=== PATIENT | male | born 1955 | race Caucasian/White ===

== ENCOUNTER 2023-05-19 10:28 | Outpatient (AMB) | payer MEDICARE, MEDICAID, SELFPAY ==
--- NOTE | 2023-05-19 10:41 | A.OFFVIS_ITS ---
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 Accompanied by: Self / Same As Patient Allergies No Known Allergies Allergy (Verified 05/19/23 10:44) Medication List - Last Reconciled 05/19/23 by Mumtaz Sawyer MD albuterol sulfate 2.5 mg inhalation Q4-6H PRN albuterol sulfate 90 mcg/actuation (ProAir HFA) 1 inh inhalation QID amlodipine 10 mg PO DAILY aspirin (Adult Low Dose Aspirin) 81 mg PO DAILY budesonide 0.25 mg inhalation BID donepezil 10 mg PO BEDTIME losartan-hydrochlorothiazide 100-25 mg 1 tab PO DAILY metoprolol tartrate 100 mg PO DAILY montelukast (Singulair) 10 mg PO BEDTIME oxycodone 15 mg PO TID PRN terazosin 1 mg PO BEDTIME HPI HPI Comments History of Present Illness Details Edison is here for consultation regarding chest pains. No known coronary disease but he does have risk factors including obesity and hypertension. He has history of COPD but he states he has never smoked in the past. Over the last year or so due to difficulty in mobility, has gained almost 100 lb. He has been getting some chest pains off and on. Across the front of the chest and sometimes he also gets discomfort in both his arms. Not clear if it is musculoskeletal or something cardiac. Can happen any time. He seems to walk with a cane. [facility] Medical History (Updated 05/19/23 @ 11:18 by Mumtaz Sawyer MD) COPD (chronic obstructive pulmonary disease) Essential hypertension Morbid obesity Surgical History (Updated 05/19/23 @ 10:56 by Alise Solares) H/O hand surgery H/O knee surgery H/O shoulder surgery Family History (Updated 05/19/23 @ 10:57 by Alise Solares) Father CAD (coronary artery disease) Social History (Updated 05/19/23 @ 10:58 by Alise Solares) Alcohol intake: former Year quit: 1985 Patient Tobacco Use Status: Never used Tobacco Review of Systems Const Denies chills, Denies daytime sleepiness, Denies fatigue, Denies fever(s), Denies frequent falls, Denies night sweats, Denies snoring, Denies weakness, Denies weight gain and Denies weight loss Eyes Denies loss of vision ENT Denies dizziness and Denies hearing loss Card Denies chest pain, Denies chest pain with activity, Denies syncope, Denies rapid heart rate, Denies edema, Denies claudication, Denies leg edema, Denies lightheadedness, Denies palpitations, Denies dyspnea, Denies dyspnea on exertion and Denies orthopnea Resp Denies cough, Denies excessive phlegm production, Denies dyspnea, Denies dyspnea on exertion, Denies snoring and Denies wheezing GI Denies abdominal pain, Denies hematochezia, Denies change in bowel habits, Denies change in stool character, Denies heartburn, Denies nausea and Denies vomiting Denies hematuria, Denies dysuria and Denies urinary frequency Musc Denies arthralgias, Denies muscle weakness, Denies numbness and Denies tingling Skin/Breast Denies nail changes and Denies rash Neuro Denies Abnormal speech present, Denies dizziness, Denies syncope, Denies f requent falls, Denies loss of vision, Denies memory loss, Denies numbness, Denies tingling and Denies weakness Psych Denies depression and Denies memory loss Endo Denies fatigue and Denies palpitations Aller/Immun Denies wheezing Physical Exam Vital Signs: Last Vital Signs Pulse 57 05/19/23 10:43 BP 96/68 05/19/23 10:43 BMI result Body Mass Index 46.2 Const General: comfortable and no acute distress Orientation/consciousness: patient oriented x3 HEENT Other: Unremarkable Head: Yes normal to inspection Neck Neck: Yes normal visual inspection Chest Chest palpation & inspection: normal inspection of the chest Resp Auscultation: clear to auscultation bilaterally Cardio Palpation: normal PMI Heart sounds: S1 normal heart sound present, S2 normal heart sound present, no gallops, no murmurs and no rubs GI Palpation (GI): Soft to palpation Back/Spine/Pelvis Other: unremarkable Skin General skin exam: no rashes or lesions noted Neuro General: patient oriented x3 Speech: No Abnormal speech present Extrem General: Yes normal to inspection Psych Mental Status: mental status grossly normal Office Procedures EKG Details: EKG with sinus bradycardia at 57/Min; no significant ST-T changes and otherwise [place]remark[place] [id number], Complete Assessment & Plan Assessment & Plan (1) Precordial chest pain: Code(s): R07.2 - Precordial pain (2) Morbid obesity: Code(s): E66.01 - Morbid (severe) obesity due to excess calories (3) COPD (chronic obstructive pulmonary disease): Code(s): J44.9 - Chronic obstructive pulmonary disease, unspecified (4) Essential hypertension: Code(s): I10 - Essential (primary) hypertension Plan Multiple risk factors, extensive weight gain recently, nonexertional chest pains, normal baseline EKG, inability to exercise as walking with a cane. Will get an echocardiogram and pharmacological stress test. If tests are inconclusive due to body habitus, then may need cardiac catheterization. We discussed about these today and patient is in agreement. To be followed once testing is completed. Orders: Orders CA lexiscan stress w tiffanie Today R07.2 - Precordial pain CA echo transthoracic complete Today R07.2 - Precordial pain NM cardiolite stress test Today R07.2 - Precordial pain Coding Level of Care Code New Pt Level 4 (55404) Diagnoses Precordial chest pain R07.2 Morbid obesity E66.01 COPD (chronic obstructive pulmonary disease) J44.9 Essential hypertension I10 CPT Codes EKG - CPT: [id number], Complete ([id number])
[2023-05-19 10:43] VITALS: BP 96/68; PULSE 57; BMI 46.2
== END 2023-05-19 11:24 | disposition home or self-care (01) ==
PROVIDERS: Visit Provider Internal Medicine
DX: R07.2 Precordial pain (principal); E66.01 Morbid (severe) obesity due to excess calories; J44.9 Chronic obstructive pulmonary disease, unspecified; I10 Essential (primary) hypertension
CPT/HCPCS: 93010; 99204

== ENCOUNTER → 2023-05-19 10:28 | Outpatient (BNVA) | payer MEDICARE, MEDICAID, SELFPAY | PROVIDERS: Visit Provider Internal Medicine | DX: R07.2 Precordial pain (principal); I10 Essential (primary) hypertension; E66.01 Morbid (severe) obesity due to excess calories; J44.9 Chronic obstructive pulmonary disease, unspecified; Z68.42 Body mass index [BMI] 45.0-49.9, adult | CPT/HCPCS: 93005; 99202 ==

== ENCOUNTER → 2023-07-09 08:05 | Outpatient (REF) | payer MEDICARE, OTHER, SELFPAY ==
--- NOTE | ~2023-07-09 | NM_ITS ---
Myocardial perfusion study Indication: Chest pain to evaluate for myocardial ischemia Technique: The patient was brought in for a Lexiscan perfusion study on 07/09/2023. Patient performed low-level exercise and was injected 0.4 mg of Lexiscan intravenously. Within a minute of injection, 45 mCi of sestamibi was given intravenously. Images were obtained using the SPECT gamma camera interlaced with the gating device. Images were obtained in supine position. Resting perfusion study was performed on 07/12/2023. Patient was administered 45 mCi of sestamibi intravenously at rest. Images were then obtained in supine position. Images obtained with and without CT attenuation. Total DLP 199 mGy-cm. Images were processed with the software and compared side to side in short axis, horizontal long axis and vertical long axis views. Findings: The stress perfusion study showed non attenuated images show mildly reduced uptake in the anterior wall with severely reduced uptake in the apex and absent uptake in the inferoapical wall as well as mildly reduced uptake in the inferior and inferoseptal wall of the LV myocardium. The attenuation corrected images show mildly to moderately reduced uptake in the anterior wall, moderately reduced uptake in the apex and mildly reduced uptake in the inferoapical wall of the LV myocardium. Remainder of the LV myocardium is normally perfused.. The gated study shows normal LV systolic function with calculated LVEF of 59%. LV cavity is mildly dilated size. The gated study shows normal systolic wall thickening and contraction of segments. Resting study shows both attenuated as well as non attenuated corrected images show improved uptake in the anterior, apex and inferoapical wall of the LV myocardium suggestive of a reversible defect.. Gating at rest reveals normal systolic wall motion with ejection fraction at 51%. The findings are consistent with mild to moderate intensity anterior as well as apical and inferoapical wall reversible defect suggestive of ischemia in LAD territory.. NM/NM cardiolite stress test Impression: 1. Myocardial perfusion imaging study shows mild to moderate intensity LAD territory ischemia 2. Gated LVEF is 59% 3. Transient ischemic dilatation present EKG is nondiagnostic for ischemia
--- NOTE | 2023-07-09 08:09 | CA_ITS ---
Acquisition Time: 2023-07-09 09:48:03 Total Exercise Time: 00:02:00 Test Indications: CP Medications: SEE H Protocol: LEXISCAN Max HR: 080 BPM 51% of Pred: 155 BPM Max BP: 118/064 mmHG Max Work Load: 1.0 METS Pharmacological stress test with Lexiscan injection while sitting and marching in place, without anginal symptoms, without arrhythmias, with normotensive response to injection, with nondiagnositic EKGs. Nuclear images pending. Test reviewed with Dr. Hernandez. Referred By: Jin Shepherd Overread By: JIN SHEPHERD
--- NOTE | 2023-07-09 08:09 | CA_ITS ---
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 Moderately dilated ascending aorta 4.5 cm 2. Normal LV ejection fraction at 60-65% with grade 1 diastolic dysfunction 3. Normal cardiac valvular Doppler 4. Normal RV systolic pressure 5. No gross pericardial effusion Findings Left Ventricle Normal left ventricular size, thickness, and systolic function. The visually estimated ejection fraction is between 60-65%. Spectral Doppler is indicative of an impaired relaxation filling pattern. E/E prime ratio is <8, consistent with normal filling pressures. Evidence suggests grade I (mild) diastolic dysfunction. Right Ventricle Normal right ventricular cavity size and systolic function. Atria The left atrium is likely dilated. Interatrial shunt cannot be excluded. The right atrium is normal in size. Aortic Valve The aortic valve structure and function is likely normal. There is no aortic valve stenosis. There is no aortic valve regurgitation. Mitral Valve Likely normal mitral valve structure and function. There is trace mitral valve regurgitation. There is no mitral valve stenosis. Pulmonic Valve The pulmonic valve was not well visualized. Tricuspid Valve Likely normal tricuspid valve structure and function. There is trace tricuspid valve regurgitation. The right ventricular systolic pressure is normal. The right ventricular systolic pressure is 16 mmHg. Normal right atrial pressure. There is no evidence of pulmonary hypertension. Great Vessels The pulmonary artery was not well visualized. There is moderate dilatation of the ascending aorta measuring 4.50 cm. Venous The inferior vena cava is normal in size and collapses greater than 50% with inspiration. Pericardium/Pleural There is no evidence of pericardial effusion. Prior Study Comparison No prior study available for comparison. Measurements 2D Linear Measurements IVSd: 1.40 0.6-0.9/0.6-1.0 cm LVIDd: 5.73 3.9-5.3/4.2-5.9 cm LVIDd Index: 2.12 2.4-3.2/2.2-3.1 cm/m2 LVIDs: 3.79 2.0-3.6 cm LVPWd: 1.39 0.7-1.1 cm Ao Root: 3.90 2.1-3.5 cm LA Diam: 4.50 2.7-3.8/3.0-4.0 cm LAIDs Index: 1.67 1.5-2.3 cm/m2 LV Mass: 447.55 67-162/88-224 g LV Mass Index: 165.76 43-95/49-115 g/m2 LVOT Diam: 2.40 3.0+(-)1.3 cm 2D Systolic Function EF 4C: 65.30 >55% EF 2C: 59.20 >55% EF BiP: 60.60 >55% Mitral Valve MV Pk E: 0.70 MV PK A: 0.87 MV Decel Time: 215.00 E/A: 0.80 E'Lateral: 5.87 E'Medial: 5.98 E/E' Med: 11.70 E/E' Lat: 11.90 PHT: 63.00 MVA PHT: 3.49 Decel [place]: 3.24 Aortic Valve AoV Pk Jayme: 1.60 AoV Mn Jayme: 0.95 AoV VTI: 0.36 AoV Pk Grad: 10.00 Aov Mn Grad: 5.00 DANIKA Cont.VTI: 3.00 LVOT LVOT Pk Jayme: 1.12 LVOT Mn Jayme: 0.68 LVOT VTI: 0.24 LVOT Pk Grad: 5.00 LVOT Mn Grad: 2.00 LVOT Diam: 2.40 LVOT Area: 4.52 Diastolic Function MV Pk E: 0.70 MV Pk A: 0.87 E/A: 0.80 E'Medial: 5.98 E/E' Med: 11.70 E' Laterial: 5.87 E/E' Lat: 11.90 Right Ventricle TAPSE (mm): 29.00 Tricuspid Valve TR Pk Jayme: 1.78 TR Pk Grad: 13.00 RA Press: 3.00 RVSP: 16.00 Great Vessels Aorta Ao Root-2D: 3.90 2.0-3.7 cm Ao Asc: 4.50 2.1-3.4 cm Pulmonary Valve PV Pk Jayme: 1.31 Peak PV Grad: 7.00 Updated in Other Vendor System with Status of Final Bobby Hernandez MD electronically signed on 07/10/2023 2:09:17 PM with status of Final
== END ==
LOC: HO.CARD 08:05
PROVIDERS: Visit Provider Internal Medicine
DX: R07.2 Precordial pain (principal)
CPT/HCPCS: 78452; 93017; 93306; A9500; J0280; J2785

== ENCOUNTER → 2023-07-09 08:09 | Outpatient (BNV) | payer MEDICARE, SELFPAY | PROVIDERS: Visit Provider Internal Medicine Cardiovascular Disease | DX: I25.10 Atherosclerotic heart disease of native coronary artery without angina pectoris (principal) | CPT/HCPCS: 78452; 93016; 93018; 93306 ==

== ENCOUNTER 2023-07-13 12:26 | Outpatient (AMB) | payer MEDICARE, SELFPAY ==
--- NOTE | 2023-07-13 12:36 | MHC.OFFVIS ---
Intake Vital Signs 07/13/23 12:42 Height 6 ft Weight 333 lb 12.478 oz BMI 45.3 BP 98/64 Blood Pressure Location Lt brachial Position Sitting Pulse 67 Intake Visit Reasons: follow up after testing Intake Note: follow up Emergency Nurse Required: No Accompanied by: Spouse Allergies No Known Allergies Allergy (Verified 07/13/23 12:46) Medication List - Last Reconciled 07/13/23 by Mumtaz Sawyer MD albuterol sulfate 2.5 mg inhalation Q4-6H PRN albuterol sulfate 90 mcg/actuation (ProAir HFA) 1 inh inhalation QID amlodipine 10 mg PO DAILY aspirin (Adult Low Dose Aspirin) 81 mg PO DAILY budesonide 0.25 mg inhalation BID donepezil 10 mg PO BEDTIME losartan-hydrochlorothiazide 100-25 mg 1 tab PO DAILY metoprolol tartrate 100 mg PO DAILY montelukast (Singulair) 10 mg PO BEDTIME oxycodone 15 mg PO TID PRN terazosin 1 mg PO BEDTIME HPI HPI Comments History of Present Illness Details Edison returns for follow-up. Recently seen in consultation regarding chest pain. No documented coronary disease the past but he has had risk factors of obesity and hypertension. He also has COPD but has never smoked in the past and he blames it all on passive exposure to cigarettes. Lot of weight gain recently. He gets off and on chest pain across the front of the chest, sometimes in arms. Nothing clearly provoking and can happen any time. Not very classical for angina. Otherwise, limited mobility and walks with a cane. [facility] Medical History (Updated 07/13/23 @ 13:16 by Mumtaz Sawyer MD) Essential hypertension COPD (chronic obstructive pulmonary disease) Morbid obesity Surgical History H/O knee surgery H/O hand surgery H/O shoulder surgery Family History Father CAD (coronary artery disease) Social History Alcohol intake: former Year quit: 1985 Patient Tobacco Use Status: Never used Tobacco Review of Systems Const Denies chills, Denies daytime sleepiness, Denies fatigue, Denies fever(s), Denies frequent falls, Denies night sweats, Denies snoring, Denies weakness, Denies weight gain and Denies weight loss Eyes Denies loss of vision ENT Denies dizziness and Denies hearing loss Card Denies chest pain, Denies chest pain with activity, Denies syncope, Denies rapid heart rate, Denies edema, Denies claudication, Denies leg edema, Denies lightheadedness, Denies palpitations, Denies dyspnea, Denies dyspnea on exertion and Denies orthopnea Resp Denies cough, Denies excessive phlegm production, Denies dyspnea, Denies dyspnea on exertion, Denies snoring and Denies wheezing GI Denies abdominal pain, Denies hematochezia, Denies change in bowel habits, Denies change in stool character, Denies heartburn, Denies nausea and Denies vomiting Denies hematuria, Denies dysuria and Denies urinary frequency Musc Denies arthralgias, Denies muscle weakness, Denies numbness and Denies tingling Skin/Breast Denies nail changes and Denies rash Neuro Denies Abnormal speech present, Denies dizziness, Denies syncope, Denies frequent falls, Denies loss of vision, Denies memory loss, Denies numbness, Denies tingling and Denies weakness Psych Denies depression and Denies memory loss Endo Denies fatigue and Denies palpitations Aller/Immun Denies wheezing Physical Exam Vital Signs: Last Vital Signs Pulse 67 07/13/23 12:42 BP 98/64 07/13/23 12:42 BMI result Body Mass Index 45.3 Const General: comfortable and no acute distress Orientation/consciousness: patient oriented x3 HEENT Other: Unremarkable Head: Yes normal to inspection Neck Neck: Yes normal visual inspection Chest Chest palpation & inspection: normal inspection of the chest Resp Auscultation: clear to auscultation bilaterally Cardio Palpation: normal PMI Heart sounds: S1 normal heart sound present, S2 normal heart sound present, no gallops, no murmurs and no rubs GI Palpation (GI): Soft to palpation Back/Spine/Pelvis Other: unremarkable Skin General skin exam: no rashes or lesions noted Neuro General: patient oriented x3 Speech: No Abnormal speech present Extrem General: Yes normal to inspection Psych Mental Status: mental status grossly normal Assessment & Plan Assessment & Plan (1) Precordial chest pain: Code(s): R07.2 - Precordial pain (2) Morbid obesity: Code(s): E66.01 - Morbid (severe) obesity due to excess calories (3) COPD (chronic obstructive pulmonary disease): Code(s): J44.9 - Chronic obstructive pulmonary disease, unspecified (4) Essential hypertension: Code(s): I10 - Essential (primary) hypertension (5) Abnormal myocardial perfusion study: Code(s): R94.39 - Abnormal result of other cardiovascular function study (6) Ascending aorta enlargement: Code(s): I77.89 - Other specified disorders of arteries and arterioles Plan In the echocardiogram, LVEF 60-60%; no significant valvular issues. Ascending aortic size 4.5 cm. In the perfusion imaging, description of [id number] LAD territory ischemia. Images reviewed. Difficult to say if it is truly ischemia or if it is all from body habitus, considering his weight. His symptoms are also somewhat atypical. Nothing clearly suggestive of exertional angina. Overall, recommend diagnostic catheterization for further evaluation. Discussed about this with patient as well as significant other. They agree. Patient states that he underwent cardiac catheterization at [facility] in the and apparently had some allergic reaction but he does not know what happened. Hence can take steroid prep accordingly. The enlarged ascending aorta will need to be followed up by echocardiograms. Advised to avoid strenuous exertion till cardiac workup is completed. Orders: Orders Complete Blood Count no Diff Today R07.2 - Precordial pain, R94.39 - Abnormal result of other cardiovascular function study Basic Metabolic Panel Today R07.2 - Precordial pain, R94.39 - Abnormal result of other cardiovascular function study Prothrombin Time INR Today I25.10 - Atherosclerotic heart disease of [place] coronary artery without angina pectoris, R94.39 - Abnormal result of other cardiovascular function study Cardiac Cath LT Diagnostic Today I25.10 - Atherosclerotic heart disease of [place] coronary artery without angina pectoris, R94.39 - Abnormal result of other cardiovascular function study Coding Level of Care Code Est Pt Level 4 (71906) Diagnoses Precordial chest pain R07.2 Morbid obesity E66.01 COPD (chronic obstructive pulmonary disease) J44.9 Essential hypertension I10 Abnormal myocardial perfusion study R94.39 Ascending aorta enlargement I77.89
[2023-07-13 12:42] VITALS: BP 98/64; PULSE 67; BMI 45.3
== END 2023-07-13 13:01 | disposition home or self-care (01) ==
PROVIDERS: Visit Provider Internal Medicine
DX: R07.2 Precordial pain (principal); E66.01 Morbid (severe) obesity due to excess calories; J44.9 Chronic obstructive pulmonary disease, unspecified; I10 Essential (primary) hypertension; R94.39 Abnormal result of other cardiovascular function study; I77.89 Other specified disorders of arteries and arterioles
CPT/HCPCS: 99214

== ENCOUNTER → 2023-07-13 12:26 | Outpatient (BNVA) | payer MEDICARE, OTHER, SELFPAY | PROVIDERS: Visit Provider Internal Medicine | DX: R07.2 Precordial pain (principal); I10 Essential (primary) hypertension; R94.39 Abnormal result of other cardiovascular function study; I77.89 Other specified disorders of arteries and arterioles; J44.9 Chronic obstructive pulmonary disease, unspecified; E66.01 Morbid (severe) obesity due to excess calories; Z68.42 Body mass index [BMI] 45.0-49.9, adult | CPT/HCPCS: 99212 ==

== ENCOUNTER → 2023-09-09 23:59 | Outpatient (BNV) | payer MEDICARE, MEDICAID, SELFPAY | PROVIDERS: Visit Provider Internal Medicine Cardiovascular Disease | DX: R93.1 Abnormal findings on diagnostic imaging of heart and coronary circulation (principal) | CPT/HCPCS: 93458; 93571 ==

== ENCOUNTER 2023-09-20 09:04 | Outpatient (AMB) | payer MEDICARE, MEDICAID, SELFPAY ==
--- NOTE | 2023-09-20 09:07 | MHC.OFFVIS ---
Intake Vital Signs 09/20/23 09:08 Height 6 ft Weight 326 lb 4.546 oz BMI 44.2 BP 100/62 Blood Pressure Location Lt brachial Position Sitting Pulse 59 Pulse Source Pulse Oximeter Intake Visit Reasons: Follow up post cardiac cath Spiral Runner Required: No Allergies No Known Allergies Allergy (Verified 09/20/23 09:10) Medication List - Last Reconciled 09/20/23 by Krystin Ho, FREEMAN-C albuterol sulfate 2.5 mg inhalation Q4-6H PRN albuterol sulfate 90 mcg/actuation (ProAir HFA) 1 inh inhalation QID amlodipine 5 mg PO DAILY aspirin (Adult Low Dose Aspirin) 81 mg PO DAILY budesonide 0.25 mg inhalation BID donepezil 10 mg PO BEDTIME fluticasone propion-salmeterol 115-21 mcg/actuation (Advair HFA) 2 puffs inhalation BID losartan-hydrochlorothiazide 100-25 mg 1 tab PO DAILY metoprolol tartrate 100 mg PO DAILY montelukast (Singulair) 10 mg PO BEDTIME oxycodone 15 mg PO TID PRN terazosin 1 mg PO BEDTIME HPI Follow up post cardiac cath HPI Details Edison is a 68-year-old male with past medical history of hypertension, morbid obesity, COPD, dilated ascending aorta who recently reported chest discomfort and underwent diagnostic cardiac catheterization showing nonobstructive coronary disease. Today he reports that he continues to have pain in his left chest region, localized, not worse with cough or deep inspiration. He feels that occur intermittently and tells me it has been going on for a long time. He does have frequent coughing with his COPD. He describes having emphysema from secondhand smoke exposure many years ago. He wears oxygen at night. No exertional chest discomfort, palpitations, presyncope, syncope, falls. No PND, edema. He sleeps in a sitting position which is his normal. Takes meds as directed. [facility] Medical History Essential hypertension COPD (chronic obstructive pulmonary disease) Morbid obesity Surgical History H/O knee surgery H/O hand surgery H/O shoulder surgery Family History Father CAD (coronary artery disease) Social History Alcohol intake: former Year quit: 1985 Patient Tobacco Use Status: Never used Tobacco Review of Systems Const All systems reviewed & are unremarkable except as noted in HPI and below ENT Denies dizziness Card Reports chest pain (localized lower left breast area), Denies chest pain at rest, Denies chest pain with activity, Denies rapid heart rate, Denies pedal edema, Denies edema, Denies leg edema, Denies lightheadedness, Denies palpitations, Denies dyspnea, Denies dyspnea on exertion and Denies orthopnea Resp Denies cough, Denies dyspnea and Denies dyspnea on exertion GI Denies hematochezia and Denies change in stool character Musc Details: uses cane - back discomfort Reports abnormal gait, Denies limited range of motion, Denies muscle weakness, Denies numbness, Denies radiating pain into limb, Denies stiffness and Denies tingling Neuro Reports abnormal gait, Denies dizziness, Denies numbness and Denies tingling Endo Denies palpitations Physical Exam Vital Signs: Last Vital Signs Pulse 59 09/20/23 09:08 BP 100/62 09/20/23 09:08 BMI result Body Mass Index 44.2 Const General: cooperative, healthy appearing, comfortable and no acute distress Orientation/consciousness: patient oriented x3 Neck Neck: Yes normal visual inspection Resp Effort & Inspection: normal respiratory effort Auscultation: clear to auscultation bilaterally, no rales, no rhonchi and no wheezes Cardio Jugular venous distension: no JVD Rate: regular rate Rhythm: regular rhythm Heart sounds: S1 normal heart sound present, S2 normal heart sound present, no murmurs and no rubs Neuro General: patient oriented x3 Extrem General: Yes normal to inspection Psych Appearance: grossly normal Mental Status: mental status grossly normal Speech and movement: Normal speech and movement present Assessment & Plan Assessment & Plan (1) Precordial chest pain: Code(s): R07.2 - Precordial pain Plan: Localized chest discomfort, atypical for angina. He did undergo a nuclear stress test done 07/09/2023 showing [id number] LAD ischemia which could be artifactual. He had diagnostic cardiac catheterization on 09/09/2023 showing moderate branch vessel disease. These findings are not the cause of his chest discomfort. Test results reviewed with him in detail. Signs and symptoms of true angina discussed. Continue cardiac risk factor modification. Continue aspirin 81 mg daily. He should be on statin therapy with ideal LDL goal less than 70. He is labs are followed by his PCP. Maynard blood pressure goal less than 130/85. Continue losartan and metoprolol. His blood pressure is on the low side today. I will reduce his amlodipine from 10 mg daily down to 5 mg daily. (2) S/P cardiac cath: Comment: 09/09/2023 showing left main mild distal disease, lad minimal irregularities, 1st diagonal 60-70% stenosis, small vessel, left circumflex 1st OM proximal 60% stenosis, IFR 0.96, RCA normal Code(s): Z98.890 - Other specified postprocedural states Plan: Right radial catheterization site well healed, easily palpable radial pulse. (3) Ascending aorta enlargement: Code(s): I77.89 - Other specified disorders of arteries and arterioles Plan: Dilated ascending aorta noted on recent echocardiogram. Echo done 07/09/2023 showing EF 60%, no valve abnormalities, ascending aorta 4.5 cm. Plan for repeat echo 1 year from last, due July 2024. Blood pressure well controlled (4) Essential hypertension: Code(s): I10 - Essential (primary) hypertension Plan: Running on low side, asymptomatic. Reducing amlodipine due to low readings Orders: Orders CA echo transthoracic complete 07/04/24 I10 - Essential (primary) hypertension, I77.89 - Other specified disorders of arteries and arterioles Medications: New amlodipine 5 mg PO DAILY 90 tabs 3RF Coding Level of Care Code Est Pt Level 4 (89880) Diagnoses Precordial chest pain R07.2 S/P cardiac cath Z98.890 Ascending aorta enlargement I77.89 Essential hypertension I10 Time Spent (min) 26
[2023-09-20 09:08] VITALS: BP 100/62; PULSE 59; BMI 44.2
== END 2023-09-20 09:34 | disposition home or self-care (01) ==
PROVIDERS: Visit Provider Nurse Practitioner Family
DX: R07.2 Precordial pain (principal); Z98.890 Other specified postprocedural states; I77.89 Other specified disorders of arteries and arterioles; I10 Essential (primary) hypertension
CPT/HCPCS: 99214

== ENCOUNTER → 2023-09-20 09:04 | Outpatient (BNVA) | payer MEDICARE, MEDICAID, SELFPAY | PROVIDERS: Visit Provider Nurse Practitioner Family | DX: R07.2 Precordial pain (principal); I10 Essential (primary) hypertension; I77.810 Thoracic aortic ectasia; Z98.890 Other specified postprocedural states; Z79.82 Long term (current) use of aspirin; Z79.891 Long term (current) use of opiate analgesic | CPT/HCPCS: 99212 ==